=== PATIENT | male | born 1985 | race Caucasian/White ===

== ENCOUNTER 2016-11-08 12:45 | Emergency (ER) | payer OTHER ==
[~2016-11-08] VITALS: Ht 175.3 cm; Wt 77.7 kg
[~2016-11-08 12:45] MED LIST: AMOXICILLIN500 M1 PO; BACTRIM,SEPT1 TABLET PO; CLEOCIN300 MG PO; CLINDAMYCIN HC300 MG PO; MOTRIN800 MG PO; NAPROSYN500 MG PO; PERCOCET 5/31 TABLET PO; ULTRAM50 MG PO
[2016-11-08] MEDS ORDERED: NORCO 7.5/321 TABLET PO (13:50)
[2016-11-08] MEDS ORDERED: MOTRIN800 MG PO (13:50)
[2016-11-08] MEDS ORDERED: LIDODERM 5% P1 PATCH TD (13:50)
[2016-11-08] MEDS ORDERED: VALIUM5 MG PO (13:50)
[2016-11-08 14:07] VITALS: BP 140/83
== END 2016-11-08 14:07 | disposition home or self-care (01) ==
LOC: EME 12:45
DX: S39.012A Strain of muscle, fascia and tendon of lower back, initial encounter (principal); M54.42 Lumbago with sciatica, left side; M54.41 Lumbago with sciatica, right side; X50.0XXA Overexertion from strenuous movement or load, initial encounter; Y93.89 Activity, other specified; Y99.0 Civilian activity done for income or pay; F17.200 Nicotine dependence, unspecified, uncomplicated
CPT/HCPCS: 99281; 99283

== ENCOUNTER 2018-01-11 22:52 | Emergency (ER) | payer OTHER ==
[~2018-01-11] VITALS: Ht 175.3 cm; Wt 79.8 kg
[~2018-01-11 22:52] MED LIST changes: +AUGMENTIN875 MG PO; +ENDOCET 5-3251 EACH PO; +LIDODERM 5% P1 PATCH TD; +NORCO 7.5/321 TABLET PO; +PINK EYE RELIEF BOTH EYES; +VALIUM5 MG PO; +VIGAMOX 0.60 DROP/3 BOTH EYES
[2018-01-11] MEDS ORDERED: PERCOCET 5/31 TABLET PO (23:49)
[2018-01-11 23:54] VITALS: BP 151/100
[2018-01-12] MEDS ORDERED: AMOXICILLIN875 MG PO (16:26)
[2018-01-12] MEDS ORDERED: NEOMYCIN-POLYMY10 ML BOTH EARS (16:27)
[2018-01-12] MEDS ORDERED: PEN-VEE K,VEET500 MG PO (18:06)
[2018-01-12] MEDS ORDERED: TYLENOL WITH C1 EACH PO (18:06)
== END 2018-01-11 23:57 | disposition home or self-care (01) ==
LOC: EME 22:52
DX: K02.9 Dental caries, unspecified (principal); F41.9 Anxiety disorder, unspecified; F32.9 Major depressive disorder, single episode, unspecified; F31.9 Bipolar disorder, unspecified; F17.200 Nicotine dependence, unspecified, uncomplicated; Z88.5 Allergy status to narcotic agent
CPT/HCPCS: 99281; 99285

== ENCOUNTER 2018-01-12 15:53 | Emergency (ER) | payer OTHER ==
[~2018-01-12] VITALS: Ht 175.3 cm; Wt 78.5 kg
[2018-01-12] MEDS ORDERED: AMOXICILLIN875 MG PO (16:26)
[2018-01-12] MEDS ORDERED: NEOMYCIN-POLYMY10 ML BOTH EARS (16:27)
[2018-01-12] MEDS ORDERED: PEN-VEE K,VEET500 MG PO (18:06)
[2018-01-12] MEDS ORDERED: TYLENOL WITH C1 EACH PO (18:06)
[2018-01-12 18:25] VITALS: BP 142/92
== END 2018-01-12 18:47 | disposition home or self-care (01) ==
LOC: EME 15:53
PROC: 3E0T3BZ Introduction of Anesthetic Agent into Peripheral Nerves and Plexi, Percutaneous Approach (ICD-10-PCS; principal; 2018-01-12)
DX: K08.89 Other specified disorders of teeth and supporting structures (principal); R50.9 Fever, unspecified; F17.200 Nicotine dependence, unspecified, uncomplicated
CPT/HCPCS: 99281; 99283; S0020